=== PATIENT | male | born 1940 | race Caucasian/White ===

== ENCOUNTER 2016-12-22 05:05 | Emergency (ER) | payer OTHER ==
[~2016-12-22] VITALS: Ht 170.2 cm; Wt 67.7 kg
[~2016-12-22 05:05] MED LIST: ACET1LIQ PO; ACET300T2 PO; ACET300T52 PO; ACET50TAOT PO; ALBU17IN INH; ALBU83IN INH; CALC500C PO; CALC600T60 PO; CARI350T PO; CEFD1CAP8 PO; CETI10TA PO; CETI1SYP16 PO; CETI5TAB2 PO; COMP1TAB PO; DOXY-278 PO; Guaifenesin PO; JEVILIQ10 PO; LANS15CA PO; LASI20TA PO; LEVA1TAB2 PO; LEVO150T7 PO; LIDO2JELLY TOP; MAGICMW PO; MULTCAP PO; NORC1TAB4 PO; ONDA8TAB7 PO; OXYC1SOL3 GT; PRAV1TAB39 PO; PRED10TA PO; PROAAER10 INH; PROC10TA PO; SENN1TAB2 PO; SOMA350T PO; SPIR1CAP INH; SYMB16INH INH; SYNT125T PO; TRIA1CR TOP; VITMTA PO; [UNRECOGNIZED DRUG - CODE] IM; [UNRECOGNIZED DRUG - CODE] PO
[2016-12-22] MEDS ORDERED: MORPHINE 4 MG/ML 1ML SYRINGE IM ONE (06:15)
[2016-12-22] MEDS ORDERED: MORPHINE 4 MG/ML 1ML SYRINGE IV ONE (07:00)
[2016-12-22 07:17] LABS: BASO % 0.1 % (0.0-1.0); EOS # 0.2 K/mm3 (0.0-0.50); EOS % 1.3 % (0.0-3.0); LARGE UNSTAINED CELL # 0.1 K/mm3 (0.0-0.4); LARGE UNSTAINED CELL % 0.6 % (0.0-4.0); LYMPH # 0.8 K/mm3 (1.5-4.5); LYMPH % 4.3 % (24.0-44.0); MEAN CORPUSCULAR HEMOGLOBIN 29.6 pg (27.0-33.0); MEAN CORPUSCULAR HGB CONC 32.7 g/dl (32.0-36.5); MEAN CORPUSCULAR VOLUME 90.6 fl (80.0-96.0); MONO # 0.8 K/mm3 (0.0-0.8); NEUTROPHILS # 13.5 K/mm3 (1.8-7.7); NEUTROPHILS % 88.7 % (36.0-66.0); PLATELET COUNT, AUTOMATED 277 k/mm3 (150-450); WHITE BLOOD COUNT 15.2 K/mm3 (4.0-10.0)
[2016-12-22] MEDS: IPRATROPIUM 0.5MG/ALBUTEROL 2.5MG INH SOL UD 3ML (DUONEB)(J7620) NEB SCH ×3 (07:24→07:50)
[2016-12-22 07:35] LABS: ANION GAP 6 MEQ/L (8-16); BLOOD UREA NITROGEN 14 MG/DL (7-18); CALCIUM LEVEL 8.8 MG/DL (8.8-10.2); CARBON DIOXIDE LEVEL 32 MEQ/L (21-32); CHLORIDE LEVEL 103 MEQ/L (98-107); CREATININE FOR GFR 0.56 MG/DL (0.70-1.30); GLOMERULAR FILTRATION RATE > 60.0 (>42); GLUCOSE, FASTING 81 MG/DL (83-110); POTASSIUM SERUM 4.5 MEQ/L (3.5-5.1); SODIUM LEVEL 141 MEQ/L (136-145)
[2016-12-22 07:40] LABS: ABG BASE EXCESS 6.1 (-2.0-2.0); ABG HCO3 30.3 MEQ/L (22.0-26.0); ABG PARTIAL PRESSURE CO2 42.2 mmHg (35.0-45.0); ABG PARTIAL PRESSURE O2 128.1 mmHg (75.0-100.0); ABG TOTAL CO2 31.6 MEQ/L (23.0-31.0); ABG pH (ARTERIAL) 7.474 UNITS (7.350-7.450)
--- NOTE | 2016-12-22 08:12 | REP ---
Clinical: Chest pain. Rule out pneumothorax. Technique: PA and lateral. Comparison: 11/30/2015. Findings: The cardiac silhouette is within normal limits and stable. Lung bal demonstrate diffuse chronic interstitial changes with elements of fibrosis and scarring. Subtle superimposed acute opacities primarily involving the left perihilar region and bilateral lower lobes cannot be excluded. No effusion. No pneumothorax. Skeletal structures demonstrate osteopenia and degenerative changes. Impression: Chronic changes Cannot exclude superimposed scattered opacities/infiltrates. No effusion or pneumothorax identified. Signed by Greg Ken MD 12/22/2016 08:05 A
[2016-12-22] MEDS ORDERED: MUCI100L2 PO (08:18)
[2016-12-22] MEDS ORDERED: BENZ200C53 PO (08:18)
[2016-12-22 08:43] VITALS: BP 112/72
--- NOTE | 2016-12-22 09:16 | ED PDOC ---
Post-Departure Follow-Up domo [facility]ado faxed formal report of cxr for fu Jinny Fox MD Dec 22, 2016 09:16
[2017-02-11] MEDS ORDERED: PRED10TA2 PO (14:44)
[2017-02-11] MEDS ORDERED: ALBU83IN INH (14:44)
[2017-02-11] MEDS ORDERED: CHIL1SUS2 PO (14:44)
[2017-02-11] MEDS ORDERED: KEYT1INJ IV (14:44)
[2017-02-11] MEDS ORDERED: [UNRECOGNIZED DRUG - CODE] PO (14:44)
[2017-02-11] MEDS ORDERED: BENZ200C53 PO (14:44)
[2017-02-11] MEDS ORDERED: IPRASOL4 IN (18:58)
[2017-02-11] MEDS ORDERED: PRED20TA PO (18:58)
== END 2016-12-22 08:50 | disposition home or self-care (01) ==
LOC: M ED 05:05
DX: J44.9 Chronic obstructive pulmonary disease, unspecified (principal); S39.012A Strain of muscle, fascia and tendon of lower back, initial encounter; S29.012A Strain of muscle and tendon of back wall of thorax, initial encounter; X58.XXXA Exposure to other specified factors, initial encounter; Y92.89 Other specified places as the place of occurrence of the external cause; Y93.89 Activity, other specified; Y99.8 Other external cause status; E03.9 Hypothyroidism, unspecified; E78.00 Pure hypercholesterolemia, unspecified; Z79.51 Long term (current) use of inhaled steroids; Z79.899 Other long term (current) drug therapy; Z88.8 Allergy status to other drugs, medicaments and biological substances; Z85.9 Personal history of malignant neoplasm, unspecified

== ENCOUNTER 2017-04-13 11:04 | Inpatient (IN) | payer OTHER ==
[2017-04-13] MEDS: IPRATROPIUM 0.5MG/ALBUTEROL 2.5MG INH SOL UD 3ML (DUONEB)(J7620) NEB ×2 (11:18→19:14)
[2017-04-13] MEDS: methylPREDNISolone INJ 125 MG/2 ML VIAL (J2930) IV (11:30)
[2017-04-13] MEDS: ALBUTEROL SULFATE 2.5 MG/0.5 ML INH NEB SOLN INH (11:33)
[2017-04-13 11:38] LABS: BASO % 0.3 % (0.0-1.0); EOS # 0.1 10^3/uL (0.0-0.50); EOS % 0.7 % (0.0-3.0); HEMATOCRIT 44.4 % (42.0-52.0); HEMOGLOBIN 14.3 g/dl (14.0-18.0); IMMATURE GRANULOCYTE % 0.3 % (0-0); LYMPH # 0.5 10^3/uL (1.5-4.5); LYMPH % 4.4 % (24.0-44.0); MEAN CORPUSCULAR HEMOGLOBIN 29.8 pg (27.0-33.0); MEAN CORPUSCULAR HGB CONC 32.2 g/dl (32.0-36.5); MEAN CORPUSCULAR VOLUME 92.5 fl (80.0-96.0); MONO # 0.7 10^3/uL (0.0-0.8); MONO % 6.2 % (0.0-5.0); NEUTROPHILS # 10.3 10^3/uL (1.8-7.7); NEUTROPHILS % 88.1 % (36.0-66.0); PLATELET COUNT, AUTOMATED 340 10^3/uL (150-450); RED CELL DISTRIBUTION WIDTH 13.7 % (11.5-14.5); WHITE BLOOD COUNT 11.7 10^3/uL (4.0-10.0)
[2017-04-13 11:41] LABS: ABG BASE EXCESS 4.2 (-2.0-2.0); ABG HCO3 28.4 MEQ/L (22.0-26.0); ABG O2 SATURATION 94.4 % (95.0-99.0); ABG PARTIAL PRESSURE CO2 41.1 mmHg (35.0-45.0); ABG STANDARD HCO3 28.2 MEQ/L (22.0-26.0); ABG TOTAL CO2 29.7 MEQ/L (23.0-31.0); ABG pH (ARTERIAL) 7.458 UNITS (7.350-7.450)
[2017-04-13 11:47] LABS: LACTIC ACID SEPSIS PROTOCOL 1.8 MMOL/L (0.4-2.0)
[2017-04-13 11:50] LABS: ALBUMIN/GLOBULIN RATIO 0.79 (1.00-1.93); ALKALINE PHOSPHATASE 75 U/L (45-117); ALT/SGPT 38 U/L (12-78); ANION GAP 9 MEQ/L (8-16); AST/SGOT 29 U/L (7-37); BILIRUBIN,DIRECT < 0.1 MG/DL (0.0-0.2); BILIRUBIN,TOTAL 0.4 MG/DL (0.2-1.0); BLOOD UREA NITROGEN 14 MG/DL (7-18); CALCIUM LEVEL 8.5 MG/DL (8.8-10.2); CARBON DIOXIDE LEVEL 28 MEQ/L (21-32); CHLORIDE LEVEL 102 MEQ/L (98-107); CPK CREATINE PHOSPHOKINASE 37 U/L (39-308); CREATININE FOR GFR 0.61 MG/DL (0.70-1.30); GLOMERULAR FILTRATION RATE > 60.0 (>42); GLUCOSE, FASTING 149 MG/DL (83-110); POTASSIUM SERUM 4.1 MEQ/L (3.5-5.1); SODIUM LEVEL 139 MEQ/L (136-145); THYROXINE (T4) 10.3 UG/DL (4.5-12.0); TOTAL PROTEIN 6.8 GM/DL (6.4-8.2); TROPONIN I < 0.02 NG/ML (< 0.10)
[2017-04-13 11:56] LABS: CK-MB VALUE MASS 1.3 NG/ML (0.0-3.6); MB/CK RELATIVE INDEX 3.51 (< OR =4); NT-PRO BNP 206 PG/ML (<450); THYROID STIMULATING HORMONE 0.426 uIU/ML (0.358-3.740)
[2017-04-13] MEDS ORDERED: ONDANSETRON 4MG/2ML VIAL (J2405) IV (12:45)
[2017-04-13] MEDS ORDERED: GASTROGRAFIN SOLUTION 30ML (Q9963) As Ordered (14:05)
[2017-04-13] MEDS: GASTROGRAFIN SOLUTION 30ML (Q9963) PO (14:15)
[2017-04-13] MEDS: TIOTROPIUM INHALER/CAPSULE (SPIRIVA) INH (14:30)
[2017-04-13] MEDS: GASTROGRAFIN SOLUTION 30ML PO (14:45)
[2017-04-13] MEDS ORDERED: ISOVUE-370 76% 100ML VIAL (Q9967) As Ordered (15:26)
[2017-04-13] MEDS: SENOKOT S TAB PO ×2 (16:41→21:00)
[2017-04-13] MEDS: AZITHROMYCIN INJ 500 MG, VIAL MATE ADAPTER 1 EACH in D5W 250 ML IV (17:15)
[2017-04-13] MEDS: NS 1,000 ML IV (17:15)
[2017-04-13] MEDS: BUDESONIDE 0.5 MG/2 ML INHALATION SUSPENSION INH (19:13)
[2017-04-13] MEDS: FORMOTEROL FUMARATE 20 MCG/2 ML INHALATION SOLUTION (PERFOROMIST) INH (19:13)
[2017-04-13] MEDS: methylPREDNISolone INJ 40 MG/1 ML VIAL (J2920) IV (20:07)
[2017-04-13 20:10] LABS: INR 1.03; PROTHROMBIN TIME 13.6 SECONDS (12.4-14.5)
[2017-04-13] MEDS: LevoFLOXacin IV 750 MG in APPROPRIATE DILUENT 1 EA IV (22:06)
[2017-04-14] MEDS: IPRATROPIUM 0.5MG/ALBUTEROL 2.5MG INH SOL UD 3ML (DUONEB)(J7620) NEB ×3 (02:00→20:00)
[2017-04-14] MEDS: methylPREDNISolone INJ 40 MG/1 ML VIAL (J2920) IV ×3 (04:01→20:00)
[2017-04-14] MEDS: NS 1,000 ML IV ×2 (04:01→16:14)
[2017-04-14] MEDS: VANCOMYCIN HCL 500 MG in D5W MINI-BAG PLUS 100 ML IV (05:19)
[2017-04-14 06:08] LABS: BASO % 0.1 % (0.0-1.0); HEMATOCRIT 36.5 % (42.0-52.0); IMMATURE GRANULOCYTE % 0.3 % (0-0); LYMPH # 0.3 10^3/uL (1.5-4.5); MEAN CORPUSCULAR HEMOGLOBIN 29.4 pg (27.0-33.0); MEAN CORPUSCULAR HGB CONC 32.6 g/dl (32.0-36.5); MEAN CORPUSCULAR VOLUME 90.1 fl (80.0-96.0); MONO # 0.2 10^3/uL (0.0-0.8); MONO % 1.8 % (0.0-5.0); NEUTROPHILS # 10.5 10^3/uL (1.8-7.7); NEUTROPHILS % 95.2 % (36.0-66.0); PLATELET COUNT, AUTOMATED 308 10^3/uL (150-450); RED BLOOD COUNT 4.05 10^6/uL (4.30-6.10); RED CELL DISTRIBUTION WIDTH 13.6 % (11.5-14.5)
[2017-04-14] MEDS: VANCOMYCIN HCL 1,000 MG, VIAL MATE ADAPTER 1 EACH in D5W 250 ML IV ×2 (06:23→17:21)
[2017-04-14 06:31] LABS: ANION GAP 6 MEQ/L (8-16); BLOOD UREA NITROGEN 13 MG/DL (7-18); CALCIUM LEVEL 8.5 MG/DL (8.8-10.2); CARBON DIOXIDE LEVEL 31 MEQ/L (21-32); CHLORIDE LEVEL 104 MEQ/L (98-107); CREATININE FOR GFR 0.53 MG/DL (0.70-1.30); GLOMERULAR FILTRATION RATE > 60.0 (>42); GLUCOSE, FASTING 132 MG/DL (83-110); POTASSIUM SERUM 4.2 MEQ/L (3.5-5.1); SODIUM LEVEL 141 MEQ/L (136-145)
[2017-04-14 07:12] LABS: POSITIVE DIFF POS FLAG
[2017-04-14 07:15] LABS: HEMOGLOBIN 11.9 g/dl (14.0-18.0)
[2017-04-14 07:16] LABS: ADD MANUAL DIFFER NO; DIFF SLIDE NUMBER 63; LYMPH % 2.6 % (24.0-44.0)
[2017-04-14] MEDS: BUDESONIDE 0.5 MG/2 ML INHALATION SUSPENSION INH ×2 (07:46→19:57)
[2017-04-14] MEDS: FORMOTEROL FUMARATE 20 MCG/2 ML INHALATION SOLUTION (PERFOROMIST) INH ×2 (07:46→19:57)
[2017-04-14] MEDS: TIOTROPIUM INHALER/CAPSULE (SPIRIVA) INH (07:47)
[2017-04-14] MEDS: SENOKOT S TAB PO ×2 (08:13→21:00)
[2017-04-14] MEDS: ENOXAPARIN 40 MG/0.4 ML SYRINGE (J1650) SC (08:14)
[2017-04-14] MEDS: PANTOPRAZOLE 40MG INJ (PROTONIX) (C9113) IV (08:14)
[2017-04-14] MEDS: LEVOTHYROXINE 125MCG TABLET (0.125MG) PO (08:14)
[2017-04-14 10:24] LABS: ERYTHROCYTE SEDIMENTATION RATE 43 mm/hr (0-20)
[2017-04-14] MEDS ORDERED: ISOVUE-370 76% 100ML VIAL (Q9967) As Ordered (15:36)
[2017-04-14] MEDS: LevoFLOXacin IV 750 MG in APPROPRIATE DILUENT 1 EA IV (20:01)
[2017-04-15] MEDS: IPRATROPIUM 0.5MG/ALBUTEROL 2.5MG INH SOL UD 3ML (DUONEB)(J7620) NEB ×4 (00:08→20:00)
[2017-04-15] MEDS: NS 1,000 ML IV ×2 (03:19→16:21)
[2017-04-15] MEDS: methylPREDNISolone INJ 40 MG/1 ML VIAL (J2920) IV ×3 (03:19→20:30)
[2017-04-15] MEDS: VANCOMYCIN HCL 1,000 MG, VIAL MATE ADAPTER 1 EACH in D5W 250 ML IV ×2 (05:27→17:49)
[2017-04-15 05:43] LABS: BASO % 0.1 % (0.0-1.0); HEMATOCRIT 34.7 % (42.0-52.0); HEMOGLOBIN 11.5 g/dl (14.0-18.0); IMMATURE GRANULOCYTE # 0.1 10^3/uL (0-0); IMMATURE GRANULOCYTE % 0.7 % (0-0); LYMPH # 0.3 10^3/uL (1.5-4.5); LYMPH % 2.1 % (24.0-44.0); MEAN CORPUSCULAR HEMOGLOBIN 29.3 pg (27.0-33.0); MEAN CORPUSCULAR HGB CONC 33.1 g/dl (32.0-36.5); MEAN CORPUSCULAR VOLUME 88.3 fl (80.0-96.0); MONO # 0.5 10^3/uL (0.0-0.8); MONO % 3.3 % (0.0-5.0); NEUTROPHILS % 93.8 % (36.0-66.0); PLATELET COUNT, AUTOMATED 298 10^3/uL (150-450); RED BLOOD COUNT 3.93 10^6/uL (4.30-6.10); RED CELL DISTRIBUTION WIDTH 13.3 % (11.5-14.5)
[2017-04-15 05:58] LABS: ANION GAP 5 MEQ/L (8-16); BLOOD UREA NITROGEN 15 MG/DL (7-18); CALCIUM LEVEL 8.1 MG/DL (8.8-10.2); CARBON DIOXIDE LEVEL 29 MEQ/L (21-32); CHLORIDE LEVEL 106 MEQ/L (98-107); GLOMERULAR FILTRATION RATE > 60.0 (>42); GLUCOSE, FASTING 124 MG/DL (83-110); POTASSIUM SERUM 4.2 MEQ/L (3.5-5.1); SODIUM LEVEL 140 MEQ/L (136-145)
[2017-04-15] MEDS: BUDESONIDE 0.5 MG/2 ML INHALATION SUSPENSION INH ×2 (07:14→20:00)
[2017-04-15] MEDS: FORMOTEROL FUMARATE 20 MCG/2 ML INHALATION SOLUTION (PERFOROMIST) INH ×2 (07:14→20:00)
[2017-04-15] MEDS: TIOTROPIUM INHALER/CAPSULE (SPIRIVA) INH (07:15)
[2017-04-15] MEDS: SENOKOT S TAB PO ×2 (09:00→21:00)
[2017-04-15] MEDS: LEVOTHYROXINE 125MCG TABLET (0.125MG) PO (09:42)
[2017-04-15] MEDS: PANTOPRAZOLE 40MG INJ (PROTONIX) (C9113) IV (09:42)
[2017-04-15] MEDS: ENOXAPARIN 40 MG/0.4 ML SYRINGE (J1650) SC (09:42)
[2017-04-15 09:56] LABS: ERYTHROCYTE SEDIMENTATION RATE 40 mm/hr (0-20)
[2017-04-15 10:05] LABS: C REACTIVE PROTEIN QUANTITATIV 5.28 MG/DL (0.00-0.30)
[2017-04-15] MEDS: busPIRone 5 MG TAB PO ×2 (16:21→20:30)
[2017-04-15 17:47] LABS: VANCOMYCIN LEVEL TROUGH 11.5 UG/ML (10.0-20.0)
[2017-04-15] MEDS: LevoFLOXacin IV 750 MG in APPROPRIATE DILUENT 1 EA IV (20:30)
[2017-04-15] MEDS: FUROSEMIDE 20 MG/2 ML VIAL (J1940) IV (23:01)
[2017-04-16] MEDS: IPRATROPIUM 0.5MG/ALBUTEROL 2.5MG INH SOL UD 3ML (DUONEB)(J7620) NEB ×4 (02:00→19:29)
[2017-04-16] MEDS: methylPREDNISolone INJ 40 MG/1 ML VIAL (J2920) IV (03:51)
[2017-04-16] MEDS: VANCOMYCIN HCL 1,000 MG, VIAL MATE ADAPTER 1 EACH in D5W 250 ML IV (05:54)
[2017-04-16 06:25] LABS: BASO % 0.1 % (0.0-1.0); HEMATOCRIT 35.9 % (42.0-52.0); HEMOGLOBIN 11.9 g/dl (14.0-18.0); IMMATURE GRANULOCYTE # 0.1 10^3/uL (0-0); IMMATURE GRANULOCYTE % 0.7 % (0-0); LYMPH % 1.6 % (24.0-44.0); MEAN CORPUSCULAR HEMOGLOBIN 29.3 pg (27.0-33.0); MEAN CORPUSCULAR HGB CONC 33.1 g/dl (32.0-36.5); MEAN CORPUSCULAR VOLUME 88.4 fl (80.0-96.0); MONO # 0.5 10^3/uL (0.0-0.8); MONO % 3.2 % (0.0-5.0); NEUTROPHILS # 14.5 10^3/uL (1.8-7.7); NEUTROPHILS % 94.4 % (36.0-66.0); PLATELET COUNT, AUTOMATED 310 10^3/uL (150-450); RED BLOOD COUNT 4.06 10^6/uL (4.30-6.10); RED CELL DISTRIBUTION WIDTH 13.7 % (11.5-14.5); WHITE BLOOD COUNT 15.3 10^3/uL (4.0-10.0)
[2017-04-16 06:36] LABS: ANION GAP 5 MEQ/L (8-16); BLOOD UREA NITROGEN 16 MG/DL (7-18); CALCIUM LEVEL 8.4 MG/DL (8.8-10.2); CARBON DIOXIDE LEVEL 32 MEQ/L (21-32); CHLORIDE LEVEL 104 MEQ/L (98-107); GLOMERULAR FILTRATION RATE > 60.0 (>42); GLUCOSE, FASTING 149 MG/DL (83-110); SODIUM LEVEL 141 MEQ/L (136-145)
[2017-04-16 07:26] LABS: ADD MANUAL DIFFER NO; DIFF SLIDE NUMBER 41; LYMPH # 0.2 10^3/uL (1.5-4.5); POSITIVE DIFF POS FLAG
[2017-04-16] MEDS: FORMOTEROL FUMARATE 20 MCG/2 ML INHALATION SOLUTION (PERFOROMIST) INH ×2 (07:32→19:29)
[2017-04-16] MEDS: BUDESONIDE 0.5 MG/2 ML INHALATION SUSPENSION INH ×2 (07:32→19:29)
[2017-04-16] MEDS: TIOTROPIUM INHALER/CAPSULE (SPIRIVA) INH (07:32)
[2017-04-16] MEDS: SENOKOT S TAB PO ×2 (08:58→20:20)
[2017-04-16] MEDS: LEVOTHYROXINE 125MCG TABLET (0.125MG) PO (08:58)
[2017-04-16] MEDS: PANTOPRAZOLE 40MG INJ (PROTONIX) (C9113) IV (08:59)
[2017-04-16] MEDS: busPIRone 5 MG TAB PO ×2 (08:59→22:08)
[2017-04-16] MEDS: predniSONE 20 MG TAB PO (08:59)
[2017-04-16] MEDS: ENOXAPARIN 40 MG/0.4 ML SYRINGE (J1650) SC (08:59)
[2017-04-16] MEDS ORDERED: CEFTAROLINE FOSAMIL 600 MG in APPROPRIATE DILUENT 1 EA IV (09:00)
[2017-04-16] MEDS: FUROSEMIDE 40 MG/4 ML VIAL (J1940) IV (10:24)
[2017-04-16] MEDS: NAFCILLIN SOD IV ×3 (11:13→22:58)
[2017-04-16] MEDS: DILUENT IV ×3 (11:13→22:58)
[2017-04-17] MEDS: IPRATROPIUM 0.5MG/ALBUTEROL 2.5MG INH SOL UD 3ML (DUONEB)(J7620) NEB ×8 (01:26→23:58)
[2017-04-17] MEDS: NAFCILLIN SOD IV ×4 (05:15→22:26)
[2017-04-17] MEDS: DILUENT IV ×4 (05:15→22:26)
[2017-04-17] MEDS: HYALURONIDASE 150UNIT/ML 1ML VIAL (AMPHADASE) (J3470) ID (06:28)
[2017-04-17 06:57] LABS: BASO % 0.1 % (0.0-1.0); EOS % 0.3 % (0.0-3.0); IMMATURE GRANULOCYTE % 0.4 % (0-0); LYMPH # 0.7 10^3/uL (1.5-4.5); LYMPH % 6.7 % (24.0-44.0); MEAN CORPUSCULAR HGB CONC 32.5 g/dl (32.0-36.5); MEAN CORPUSCULAR VOLUME 89.3 fl (80.0-96.0); MONO # 0.9 10^3/uL (0.0-0.8); MONO % 9.3 % (0.0-5.0); NEUTROPHILS # 8.4 10^3/uL (1.8-7.7); NEUTROPHILS % 83.2 % (36.0-66.0); PLATELET COUNT, AUTOMATED 320 10^3/uL (150-450); RED BLOOD COUNT 4.48 10^6/uL (4.30-6.10); RED CELL DISTRIBUTION WIDTH 13.8 % (11.5-14.5)
[2017-04-17 07:11] LABS: ANION GAP 5 MEQ/L (8-16); BLOOD UREA NITROGEN 24 MG/DL (7-18); CALCIUM LEVEL 8.6 MG/DL (8.8-10.2); CARBON DIOXIDE LEVEL 35 MEQ/L (21-32); CHLORIDE LEVEL 104 MEQ/L (98-107); GLOMERULAR FILTRATION RATE > 60.0 (>42); GLUCOSE, FASTING 90 MG/DL (83-110); POTASSIUM SERUM 3.2 MEQ/L (3.5-5.1); SODIUM LEVEL 144 MEQ/L (136-145)
[2017-04-17 07:11] LABS: C REACTIVE PROTEIN QUANTITATIV 1.52 MG/DL (0.00-0.30)
[2017-04-17 07:15] LABS: LACTIC ACID SEPSIS PROTOCOL 2.5 MMOL/L (0.4-2.0)
[2017-04-17] MEDS: BUDESONIDE 0.5 MG/2 ML INHALATION SUSPENSION INH ×2 (07:18→19:20)
[2017-04-17] MEDS: FORMOTEROL FUMARATE 20 MCG/2 ML INHALATION SOLUTION (PERFOROMIST) INH ×2 (07:18→19:20)
[2017-04-17] MEDS: TIOTROPIUM INHALER/CAPSULE (SPIRIVA) INH (07:18)
[2017-04-17 08:07] LABS: ERYTHROCYTE SEDIMENTATION RATE 21 mm/hr (0-20)
[2017-04-17] MEDS: methylPREDNISolone INJ 125 MG/2 ML VIAL (J2930) IV ×3 (08:28→20:08)
[2017-04-17] MEDS: SENOKOT S TAB PO ×2 (09:00→20:21)
[2017-04-17] MEDS: ENOXAPARIN 40 MG/0.4 ML SYRINGE (J1650) SC (09:00)
[2017-04-17] MEDS ORDERED: predniSONE 20 MG TAB PO (09:00)
[2017-04-17] MEDS: LEVOTHYROXINE 125MCG TABLET (0.125MG) PO (09:52)
[2017-04-17] MEDS: guaiFENesin ER 600 MG TAB PO ×2 (09:52→20:07)
[2017-04-17] MEDS: busPIRone 5 MG TAB PO ×2 (09:52→20:07)
[2017-04-17] MEDS: FUROSEMIDE 40 MG/4 ML VIAL (J1940) IV (09:53)
[2017-04-17] MEDS: OMEPRAZOLE 20 MG CAP PO (09:53)
[2017-04-17] MEDS: POTASSIUM CHLORIDE 10 MEQ SR TABLET PO (09:53)
[2017-04-17] MEDS: SODIUM CHLORIDE 0.9% INJ 10 ML SYR IV ×2 (17:15→20:07)
[2017-04-18] MEDS: guaiFENesin SYRUP 200 MG/10 ML UDC PO ×6 (01:12→20:13)
[2017-04-18] MEDS: methylPREDNISolone INJ 125 MG/2 ML VIAL (J2930) IV ×2 (01:13→12:15)
[2017-04-18] MEDS: SODIUM CHLORIDE 0.9% INJ 10 ML SYR IV ×3 (01:13→17:52)
[2017-04-18] MEDS: IPRATROPIUM 0.5MG/ALBUTEROL 2.5MG INH SOL UD 3ML (DUONEB)(J7620) NEB ×5 (04:00→19:58)
[2017-04-18] MEDS: DILUENT IV ×4 (05:04→23:19)
[2017-04-18] MEDS: NAFCILLIN SOD IV ×4 (05:04→23:19)
[2017-04-18 05:15] LABS: BASO % 0.1 % (0.0-1.0); HEMATOCRIT 38.2 % (42.0-52.0); HEMOGLOBIN 12.3 g/dl (14.0-18.0); IMMATURE GRANULOCYTE # 0.1 10^3/uL (0-0); IMMATURE GRANULOCYTE % 0.6 % (0-0); LYMPH % 1.6 % (24.0-44.0); MEAN CORPUSCULAR HEMOGLOBIN 29.5 pg (27.0-33.0); MEAN CORPUSCULAR HGB CONC 32.2 g/dl (32.0-36.5); MEAN CORPUSCULAR VOLUME 91.6 fl (80.0-96.0); MONO # 0.5 10^3/uL (0.0-0.8); MONO % 4.8 % (0.0-5.0); NEUTROPHILS # 10.4 10^3/uL (1.8-7.7); NEUTROPHILS % 92.9 % (36.0-66.0); PLATELET COUNT, AUTOMATED 293 10^3/uL (150-450); RED BLOOD COUNT 4.17 10^6/uL (4.30-6.10); RED CELL DISTRIBUTION WIDTH 14.3 % (11.5-14.5); WHITE BLOOD COUNT 11.2 10^3/uL (4.0-10.0)
[2017-04-18 05:35] LABS: LYMPH # 0.2 10^3/uL (1.5-4.5); POSITIVE DIFF POS FLAG
[2017-04-18 05:36] LABS: ANION GAP 4 MEQ/L (8-16); BLOOD UREA NITROGEN 27 MG/DL (7-18); CALCIUM LEVEL 8.4 MG/DL (8.8-10.2); CARBON DIOXIDE LEVEL 39 MEQ/L (21-32); CHLORIDE LEVEL 104 MEQ/L (98-107); CREATININE FOR GFR 0.76 MG/DL (0.70-1.30); GLOMERULAR FILTRATION RATE > 60.0 (>42); GLUCOSE, FASTING 155 MG/DL (83-110); POTASSIUM SERUM 3.9 MEQ/L (3.5-5.1); SODIUM LEVEL 147 MEQ/L (136-145)
[2017-04-18] MEDS: TIOTROPIUM INHALER/CAPSULE (SPIRIVA) INH (07:45)
[2017-04-18] MEDS: FORMOTEROL FUMARATE 20 MCG/2 ML INHALATION SOLUTION (PERFOROMIST) INH ×2 (07:45→19:58)
[2017-04-18] MEDS: BUDESONIDE 0.5 MG/2 ML INHALATION SUSPENSION INH ×2 (07:45→19:58)
[2017-04-18] MEDS: OMEPRAZOLE 20 MG CAP PO (08:38)
[2017-04-18] MEDS: LEVOTHYROXINE 125MCG TABLET (0.125MG) PO (08:38)
[2017-04-18] MEDS: busPIRone 5 MG TAB PO ×2 (08:38→20:13)
[2017-04-18] MEDS: SENOKOT S TAB PO ×2 (08:39→21:00)
[2017-04-18] MEDS: ENOXAPARIN 40 MG/0.4 ML SYRINGE (J1650) SC (08:40)
[2017-04-18] MEDS: ACETAMINOPHEN TAB 650MG DOSE (2X325MG) PO (17:52)
[2017-04-19] MEDS: IPRATROPIUM 0.5MG/ALBUTEROL 2.5MG INH SOL UD 3ML (DUONEB)(J7620) NEB ×8 (00:44→23:13)
[2017-04-19] MEDS: FUROSEMIDE 40 MG/4 ML VIAL (J1940) IV (00:53)
[2017-04-19] MEDS: guaiFENesin SYRUP 200 MG/10 ML UDC PO ×7 (01:00→20:00)
[2017-04-19 01:14] LABS: ABG O2 SATURATION 85.3 % (95.0-99.0)
[2017-04-19 01:16] LABS: ABG BASE EXCESS 9.6 (-2.0-2.0); ABG HCO3 34.6 MEQ/L (22.0-26.0); ABG PARTIAL PRESSURE CO2 47.8 mmHg (35.0-45.0); ABG STANDARD HCO3 33.1 MEQ/L (22.0-26.0); ABG TOTAL CO2 36.1 MEQ/L (23.0-31.0); ABG pH (ARTERIAL) 7.478 UNITS (7.350-7.450)
[2017-04-19 01:18] LABS: ABG PARTIAL PRESSURE O2 46.9 mmHg (75.0-100.0)
[2017-04-19] MEDS: methylPREDNISolone INJ 125 MG/2 ML VIAL (J2930) IV ×2 (01:34→13:38)
[2017-04-19] MEDS: LORazepam 2 MG/ML VIAL (J2060) IV ×2 (02:01→02:05)
[2017-04-19] MEDS ORDERED: LORazepam 2 MG/ML VIAL (J2060) As Ordered (02:02)
[2017-04-19 02:08] LABS: MAGNESIUM LEVEL 2.3 MG/DL (1.8-2.4)
[2017-04-19 02:10] LABS: ALBUMIN 3.1 GM/DL (3.2-5.2); ANION GAP 5 MEQ/L (8-16); BLOOD UREA NITROGEN 26 MG/DL (7-18); CALCIUM LEVEL 9.2 MG/DL (8.8-10.2); CARBON DIOXIDE LEVEL 41 MEQ/L (21-32); CHLORIDE LEVEL 99 MEQ/L (98-107); CK-MB VALUE MASS 2.5 NG/ML (0.0-3.6); CPK CREATINE PHOSPHOKINASE 60 U/L (39-308); CREATININE FOR GFR 0.83 MG/DL (0.70-1.30); GLOMERULAR FILTRATION RATE > 60.0 (>42); GLUCOSE, FASTING 181 MG/DL (83-110); MB/CK RELATIVE INDEX 4.16 (< OR =4); NT-PRO BNP 894 PG/ML (<450); PHOSPHORUS LEVEL 4.3 MG/DL (2.5-4.9); POTASSIUM SERUM 3.6 MEQ/L (3.5-5.1); SODIUM LEVEL 145 MEQ/L (136-145)
[2017-04-19] MEDS: DILUENT IV ×4 (05:14→23:58)
[2017-04-19] MEDS: NAFCILLIN SOD IV ×4 (05:14→23:58)
[2017-04-19] MEDS: SODIUM CHLORIDE 0.9% INJ 10 ML SYR IV ×2 (05:15→17:28)
[2017-04-19 05:34] LABS: BASO % 0.1 % (0.0-1.0); HEMATOCRIT 41.1 % (42.0-52.0); HEMOGLOBIN 13.3 g/dl (14.0-18.0); IMMATURE GRANULOCYTE # 0.1 10^3/uL (0-0); IMMATURE GRANULOCYTE % 0.6 % (0-0); LYMPH # 0.3 10^3/uL (1.5-4.5); LYMPH % 2.2 % (24.0-44.0); MEAN CORPUSCULAR HEMOGLOBIN 29.6 pg (27.0-33.0); MEAN CORPUSCULAR HGB CONC 32.4 g/dl (32.0-36.5); MEAN CORPUSCULAR VOLUME 91.3 fl (80.0-96.0); MONO # 0.9 10^3/uL (0.0-0.8); MONO % 7.2 % (0.0-5.0); NEUTROPHILS # 11.2 10^3/uL (1.8-7.7); NEUTROPHILS % 89.9 % (36.0-66.0); PLATELET COUNT, AUTOMATED 277 10^3/uL (150-450); RED CELL DISTRIBUTION WIDTH 14.6 % (11.5-14.5); WHITE BLOOD COUNT 12.4 10^3/uL (4.0-10.0)
[2017-04-19 05:35] LABS: POSITIVE DIFF POS FLAG
[2017-04-19 05:48] LABS: ANION GAP 4 MEQ/L (8-16); BLOOD UREA NITROGEN 28 MG/DL (7-18); CARBON DIOXIDE LEVEL 43 MEQ/L (21-32); CHLORIDE LEVEL 98 MEQ/L (98-107); CREATININE FOR GFR 0.94 MG/DL (0.70-1.30); GLOMERULAR FILTRATION RATE > 60.0 (>42); GLUCOSE, FASTING 201 MG/DL (83-110); POTASSIUM SERUM 3.4 MEQ/L (3.5-5.1); SODIUM LEVEL 145 MEQ/L (136-145)
[2017-04-19] MEDS: KCL 10MEQ IN 100ML SWI (KRUN) 10 MEQ in APPROPRIATE DILUENT 1 EA IV (06:09)
[2017-04-19] MEDS: TIOTROPIUM INHALER/CAPSULE (SPIRIVA) INH ×2 (07:59→08:01)
[2017-04-19] MEDS: BUDESONIDE 0.5 MG/2 ML INHALATION SUSPENSION INH ×2 (07:59→20:22)
[2017-04-19] MEDS: FORMOTEROL FUMARATE 20 MCG/2 ML INHALATION SOLUTION (PERFOROMIST) INH ×2 (07:59→20:22)
[2017-04-19] MEDS: SENOKOT S TAB PO ×2 (09:00→19:59)
[2017-04-19] MEDS: OMEPRAZOLE 20 MG CAP PO (09:20)
[2017-04-19] MEDS: busPIRone 5 MG TAB PO ×2 (09:20→20:00)
[2017-04-19] MEDS: LEVOTHYROXINE 125MCG TABLET (0.125MG) PO (09:20)
[2017-04-19] MEDS: ENOXAPARIN 40 MG/0.4 ML SYRINGE (J1650) SC (09:21)
[2017-04-19] MEDS: ACETAMINOPHEN TAB 650MG DOSE (2X325MG) PO (11:34)
[2017-04-19] MEDS: ALPRAZolam 0.5 MG TAB PO (11:35)
[2017-04-19] MEDS: ALPRAZolam 0.25 MG TAB PO (20:00)
[2017-04-20] MEDS: IPRATROPIUM 0.5MG/ALBUTEROL 2.5MG INH SOL UD 3ML (DUONEB)(J7620) NEB ×6 (03:55→23:34)
[2017-04-20] MEDS: guaiFENesin SYRUP 200 MG/10 ML UDC PO ×6 (05:13→20:13)
[2017-04-20] MEDS: NAFCILLIN SOD IV ×4 (05:13→23:19)
[2017-04-20] MEDS: DILUENT IV ×4 (05:13→23:19)
[2017-04-20] MEDS: SODIUM CHLORIDE 0.9% INJ 10 ML SYR IV ×2 (05:14→17:12)
[2017-04-20 05:39] LABS: BASO % 0.1 % (0.0-1.0); EOS % 0.1 % (0.0-3.0); HEMOGLOBIN 12.4 g/dl (14.0-18.0); IMMATURE GRANULOCYTE # 0.1 10^3/uL (0-0); IMMATURE GRANULOCYTE % 0.7 % (0-0); LYMPH # 0.3 10^3/uL (1.5-4.5); LYMPH % 2.8 % (24.0-44.0); MEAN CORPUSCULAR HEMOGLOBIN 29.5 pg (27.0-33.0); MEAN CORPUSCULAR HGB CONC 31.8 g/dl (32.0-36.5); MEAN CORPUSCULAR VOLUME 92.6 fl (80.0-96.0); MONO # 0.3 10^3/uL (0.0-0.8); MONO % 2.9 % (0.0-5.0); NEUTROPHILS # 9.3 10^3/uL (1.8-7.7); NEUTROPHILS % 93.4 % (36.0-66.0); PLATELET COUNT, AUTOMATED 247 10^3/uL (150-450); RED BLOOD COUNT 4.21 10^6/uL (4.30-6.10); RED CELL DISTRIBUTION WIDTH 14.6 % (11.5-14.5)
[2017-04-20 05:45] LABS: POSITIVE DIFF POS FLAG
[2017-04-20 06:02] LABS: ANION GAP 4 MEQ/L (8-16); BLOOD UREA NITROGEN 27 MG/DL (7-18); CALCIUM LEVEL 8.7 MG/DL (8.8-10.2); CARBON DIOXIDE LEVEL 44 MEQ/L (21-32); CHLORIDE LEVEL 100 MEQ/L (98-107); CREATININE FOR GFR 0.83 MG/DL (0.70-1.30); GLOMERULAR FILTRATION RATE > 60.0 (>42); GLUCOSE, FASTING 170 MG/DL (83-110); SODIUM LEVEL 148 MEQ/L (136-145)
[2017-04-20] MEDS: KCL 20MEQ IN 100ML SWI (KRUN) 20 MEQ in APPROPRIATE DILUENT 1 EA IV (07:21)
[2017-04-20] MEDS: FORMOTEROL FUMARATE 20 MCG/2 ML INHALATION SOLUTION (PERFOROMIST) INH ×2 (08:19→19:37)
[2017-04-20] MEDS: BUDESONIDE 0.5 MG/2 ML INHALATION SUSPENSION INH ×2 (08:19→19:37)
[2017-04-20] MEDS: TIOTROPIUM INHALER/CAPSULE (SPIRIVA) INH (08:20)
[2017-04-20] MEDS: ENOXAPARIN 40 MG/0.4 ML SYRINGE (J1650) SC (09:11)
[2017-04-20] MEDS: POTASSIUM CHLORIDE 10% LIQ 20 MEQ/15 ML UDC PO (09:11)
[2017-04-20] MEDS: busPIRone 5 MG TAB PO ×2 (09:11→20:13)
[2017-04-20] MEDS: OMEPRAZOLE 20 MG CAP PO (09:11)
[2017-04-20] MEDS: ALPRAZolam 0.25 MG TAB PO ×2 (09:12→18:47)
[2017-04-20] MEDS: LEVOTHYROXINE 125MCG TABLET (0.125MG) PO (09:12)
[2017-04-20] MEDS: SENOKOT S TAB PO ×2 (09:12→20:13)
[2017-04-20 11:02] LABS: ABG BASE EXCESS 8.7 (-2.0-2.0); ABG HCO3 32.6 MEQ/L (22.0-26.0); ABG O2 SATURATION 96.1 % (95.0-99.0); ABG PARTIAL PRESSURE CO2 41.8 mmHg (35.0-45.0); ABG PARTIAL PRESSURE O2 77.9 mmHg (75.0-100.0); ABG STANDARD HCO3 32.5 MEQ/L (22.0-26.0); ABG TOTAL CO2 33.9 MEQ/L (23.0-31.0)
[2017-04-20] MEDS: methylPREDNISolone INJ 125 MG/2 ML VIAL (J2930) IV ×2 (13:15)
[2017-04-20] MEDS: ACETAMINOPHEN TAB 650MG DOSE (2X325MG) PO (17:11)
[2017-04-21] MEDS: methylPREDNISolone INJ 125 MG/2 ML VIAL (J2930) IV ×2 (01:28→13:25)
[2017-04-21] MEDS: guaiFENesin SYRUP 200 MG/10 ML UDC PO ×6 (01:28→20:39)
[2017-04-21] MEDS: ALPRAZolam 0.25 MG TAB PO ×3 (01:47→17:38)
[2017-04-21] MEDS: IPRATROPIUM 0.5MG/ALBUTEROL 2.5MG INH SOL UD 3ML (DUONEB)(J7620) NEB ×7 (04:29→23:11)
[2017-04-21] MEDS: ACETAMINOPHEN TAB 650MG DOSE (2X325MG) PO ×4 (04:30→20:40)
[2017-04-21] MEDS: NAFCILLIN SOD IV ×4 (04:30→23:28)
[2017-04-21] MEDS: DILUENT IV ×4 (04:30→23:28)
[2017-04-21] MEDS: SODIUM CHLORIDE 0.9% INJ 10 ML SYR IV ×2 (06:12→16:51)
[2017-04-21 06:26] LABS: HEMATOCRIT 37.7 % (42.0-52.0); HEMOGLOBIN 11.9 g/dl (14.0-18.0); MEAN CORPUSCULAR HEMOGLOBIN 29.5 pg (27.0-33.0); MEAN CORPUSCULAR HGB CONC 31.6 g/dl (32.0-36.5); MEAN CORPUSCULAR VOLUME 93.3 fl (80.0-96.0); PLATELET COUNT, AUTOMATED 224 10^3/uL (150-450); RED BLOOD COUNT 4.04 10^6/uL (4.30-6.10); RED CELL DISTRIBUTION WIDTH 14.8 % (11.5-14.5); WHITE BLOOD COUNT 11.1 10^3/uL (4.0-10.0)
[2017-04-21 06:30] LABS: ANION GAP 2 MEQ/L (8-16); BLOOD UREA NITROGEN 22 MG/DL (7-18); CALCIUM LEVEL 8.7 MG/DL (8.8-10.2); CARBON DIOXIDE LEVEL 40 MEQ/L (21-32); CHLORIDE LEVEL 98 MEQ/L (98-107); CREATININE FOR GFR 0.73 MG/DL (0.70-1.30); GLOMERULAR FILTRATION RATE > 60.0 (>42); GLUCOSE, FASTING 154 MG/DL (83-110); POTASSIUM SERUM 3.4 MEQ/L (3.5-5.1); SODIUM LEVEL 140 MEQ/L (136-145)
[2017-04-21] MEDS: FORMOTEROL FUMARATE 20 MCG/2 ML INHALATION SOLUTION (PERFOROMIST) INH ×2 (07:57→19:44)
[2017-04-21] MEDS: TIOTROPIUM INHALER/CAPSULE (SPIRIVA) INH (07:57)
[2017-04-21] MEDS: BUDESONIDE 0.5 MG/2 ML INHALATION SUSPENSION INH ×2 (07:58→19:44)
[2017-04-21] MEDS ORDERED: MIRALAX *UNIT DOSE* 17GM PACKET PO (08:45)
[2017-04-21] MEDS: ENOXAPARIN 40 MG/0.4 ML SYRINGE (J1650) SC (08:46)
[2017-04-21] MEDS: PANTOPRAZOLE 40MG INJ (PROTONIX) (C9113) IV (08:46)
[2017-04-21] MEDS: POTASSIUM CHLORIDE 10% LIQ 20 MEQ/15 ML UDC PO (08:47)
[2017-04-21] MEDS: busPIRone 5 MG TAB PO ×2 (08:47→20:40)
[2017-04-21] MEDS: LEVOTHYROXINE 125MCG TABLET (0.125MG) PO (08:54)
[2017-04-21] MEDS: SENOKOT S TAB PO ×2 (09:00→20:40)
[2017-04-21] MEDS: KCL 10MEQ IN 100ML SWI (KRUN) 10 MEQ in APPROPRIATE DILUENT 1 EA IV (09:05)
[2017-04-21 12:34] LABS: ABG BASE EXCESS 7.1 (-2.0-2.0); ABG HCO3 31.7 MEQ/L (22.0-26.0); ABG O2 SATURATION 98.2 % (95.0-99.0); ABG PARTIAL PRESSURE CO2 45.1 mmHg (35.0-45.0); ABG PARTIAL PRESSURE O2 107.5 mmHg (75.0-100.0); ABG STANDARD HCO3 30.9 MEQ/L (22.0-26.0); ABG TOTAL CO2 33.1 MEQ/L (23.0-31.0); ABG pH (ARTERIAL) 7.465 UNITS (7.350-7.450)
[2017-04-21] MEDS: MIRALAX *UNIT DOSE* 17GM PACKET PO (13:25)
[2017-04-21] MEDS: SIMETHICONE 80 MG CHEW TAB PO (13:30)
[2017-04-21] MEDS: BISACODYL 5 MG TAB PO (20:40)
[2017-04-22] MEDS: methylPREDNISolone INJ 125 MG/2 ML VIAL (J2930) IV (00:09)
[2017-04-22] MEDS: guaiFENesin SYRUP 200 MG/10 ML UDC PO (00:09)
[2017-04-22] MEDS: SODIUM CHLORIDE 0.9% INJ 10 ML SYR IV ×3 (00:10→17:17)
[2017-04-22] MEDS: ALPRAZolam 0.25 MG TAB PO (00:10)
[2017-04-22] MEDS ORDERED: ATROPINE SULFATE 1% OP SOLN 2 ML BTL SL (01:00)
[2017-04-22] MEDS: MORPHINE 2 MG/ML 1ML SYRINGE IV ×2 (01:02→21:31)
[2017-04-22] MEDS: LORazepam 2 MG/ML VIAL (J2060) IV ×5 (01:02→21:30)
[2017-04-22] MEDS: BUDESONIDE 0.5 MG/2 ML INHALATION SUSPENSION INH ×2 (07:35→20:00)
[2017-04-22] MEDS: IPRATROPIUM 0.5MG/ALBUTEROL 2.5MG INH SOL UD 3ML (DUONEB)(J7620) NEB (07:35)
[2017-04-22] MEDS: TIOTROPIUM INHALER/CAPSULE (SPIRIVA) INH (07:36)
[2017-04-22] MEDS: FORMOTEROL FUMARATE 20 MCG/2 ML INHALATION SOLUTION (PERFOROMIST) INH ×2 (07:36→20:00)
[2017-04-22] MEDS: PANTOPRAZOLE 40MG INJ (PROTONIX) (C9113) IV (08:17)
[2017-04-22] MEDS: methylPREDNISolone INJ 40 MG/1 ML VIAL (J2920) IV (12:33)
[2017-04-23] MEDS ORDERED: guaiFENesin SYRUP 200 MG/10 ML UDC PO (01:00)
[2017-04-23] MEDS: SODIUM CHLORIDE 0.9% INJ 10 ML SYR IV ×2 (01:07→06:00)
[2017-04-23] MEDS: SCOPOLAMINE 1MG TRANSDERMAL PATCH TOP (01:07)
[2017-04-23] MEDS: methylPREDNISolone INJ 40 MG/1 ML VIAL (J2920) IV (01:07)
[2017-04-23] MEDS: TIOTROPIUM INHALER/CAPSULE (SPIRIVA) INH (07:44)
[2017-04-23] MEDS: BUDESONIDE 0.5 MG/2 ML INHALATION SUSPENSION INH (07:45)
[2017-04-23] MEDS: FORMOTEROL FUMARATE 20 MCG/2 ML INHALATION SOLUTION (PERFOROMIST) INH (07:45)
== END 2017-04-23 04:04 | disposition expired | DRG 189 ==
LOC: M ICU 04-19 02:27 → M MSPAV 04-22 04:12 → M ED 11:04 → M ED INP 12:42 → M MSPAV 16:07
PROC: 02HV33Z Insertion of Infusion Device into Superior Vena Cava, Percutaneous Approach (ICD-10-PCS; principal; 2017-04-17)
PROC: 5A09457 Assistance with Respiratory Ventilation, 24-96 Consecutive Hours, Continuous Positive Airway Pressure (ICD-10-PCS; 2017-04-19)
DX: J96.21 Acute and chronic respiratory failure with hypoxia (principal); I50.31 Acute diastolic (congestive) heart failure; J68.0 Bronchitis and pneumonitis due to chemicals, gases, fumes and vapors; J44.1 Chronic obstructive pulmonary disease with (acute) exacerbation; C15.9 Malignant neoplasm of esophagus, unspecified; C78.00 Secondary malignant neoplasm of unspecified lung; C77.1 Secondary and unspecified malignant neoplasm of intrathoracic lymph nodes; R78.81 Bacteremia; E87.3 Alkalosis; E87.0 Hyperosmolality and hypernatremia; E46 Unspecified protein-calorie malnutrition; Z51.5 Encounter for palliative care; Z66 Do not resuscitate; J96.22 Acute and chronic respiratory failure with hypercapnia; E03.9 Hypothyroidism, unspecified; E78.5 Hyperlipidemia, unspecified; K21.9 Gastro-esophageal reflux disease without esophagitis; K42.9 Umbilical hernia without obstruction or gangrene; R13.10 Dysphagia, unspecified; K57.30 Diverticulosis of large intestine without perforation or abscess without bleeding; E87.70 Fluid overload, unspecified; I27.81 Cor pulmonale (chronic); R10.84 Generalized abdominal pain; T45.1X5A Adverse effect of antineoplastic and immunosuppressive drugs, initial encounter; M62.81 Muscle weakness (generalized); Z99.81 Dependence on supplemental oxygen; Z87.891 Personal history of nicotine dependence; Z79.891 Long term (current) use of opiate analgesic; Z79.52 Long term (current) use of systemic steroids; Z79.899 Other long term (current) drug therapy; Z88.0 Allergy status to penicillin; Z92.21 Personal history of antineoplastic chemotherapy; Z92.3 Personal history of irradiation; Z88.8 Allergy status to other drugs, medicaments and biological substances; Z93.1 Gastrostomy status